=== PATIENT | female | born 1950 | race Hispanic/Latino ===

== ENCOUNTER 2018-08-17 20:38 | Emergency (ER) | payer BC, MEDICARE ==
[2018-08-17] MEDS ORDERED: 0.9% SODIUM CHLORIDE 1000 ML IV BAG IV ONE (21:30)
[2018-08-17 21:40] LABS: BASOPHILS % (AUTO) 0.5 % (0.0-5.0); EOSINOPHILS % (AUTO) 1.8 % (0.0-8.0); HEMATOCRIT 36.9 % (36-48); LYMPHOCYTES % (AUTO) 36.7 % (21.0-51.0); MEAN CORPUSCULAR HEMOGLOBIN 28.8 pg (27.0-33.0); MEAN CORPUSCULAR HGB CONC 33.9 g/dL (32.0-36.0); MEAN CORPUSCULAR VOLUME 85.1 fL (79-99); MONOCYTES % (AUTO) 8.3 % (3.0-13.0); NEUTROPHILS % (AUTO) 52.7 % (40.0-77.0); PLATELET COUNT (AUTO) 262 K/uL (130-400); RED BLOOD CELL COUNT(AUTO) 4.34 MIL/uL (4.00-5.50); RED CELL DISTRIBUTION WIDTH 13.2 % (11.0-15.5); WHITE BLOOD COUNT (AUTO) 5.7 K/uL (4.8-10.8)
[2018-08-17 21:48] LABS: POTASSIUM 3.9 mmol/L (3.5-5.1)
[2018-08-17 21:51] LABS: INR 0.96 (0.85-1.15); PARTIAL THROMBOPLASTIN TIME 29.6 SEC (26.3-35.5); PROTHROMBIN TIME 10.1 SEC (9.6-11.6)
[2018-08-17 21:52] LABS: ALBUMIN 3.3 g/dL (3.5-5.0); BILIRUBIN,TOTAL 0.4 mg/dL (0.2-1.0); TOTAL PROTEIN, SERUM 7.3 g/dL (6.0-8.3)
== END 2018-08-17 23:42 | disposition home or self-care (01) ==
LOC: EDH 20:38
DX: F41.9 Anxiety disorder, unspecified (principal); R55 Syncope and collapse; R42 Dizziness and giddiness
CPT/HCPCS: 36415; 80053; 82550; 84484; 85025; 85610; 85730; 93005; 96360; 96361; 99285; J7030

== ENCOUNTER → 2019-11-29 | Outpatient (CLI) | payer BC, MEDICARE ==
[~2019-11-29] MED LIST: REGADENOSON 0.4 MG/5 ML PF SYG IVP SCH
== END | disposition home or self-care (01) ==
LOC: CANPRECLI → SHCH 08:08
PROVIDERS: ATTEND Internal Medicine Cardiovascular Disease
DX: I25.10 Atherosclerotic heart disease of native coronary artery without angina pectoris (principal)
CPT/HCPCS: 78452; 93017; 96374; A9500 ×2; J2785

== ENCOUNTER → 2023-11-16 | Outpatient (CLI) | payer OTHER ==
[2023-11-16 12:30] LABS: ALBUMIN 3.5 g/dL (3.5-5.0); BILIRUBIN,TOTAL 0.6 mg/dL (0.2-1.0); CREATININE 0.7 mg/dL (0.5-1.0); POTASSIUM 4.1 mmol/L (3.5-5.1); TOTAL PROTEIN, SERUM 7.3 g/dL (6.0-8.3)
== END | disposition home or self-care (01) ==
LOC: LAB 08:13
PROVIDERS: ATTEND Student in an Organized Health Care Education/Training Program
DX: I25.10 Atherosclerotic heart disease of native coronary artery without angina pectoris (principal); Z82.49 Family history of ischemic heart disease and other diseases of the circulatory system
CPT/HCPCS: 36415; 80053

== ENCOUNTER 2023-12-02 14:52 | Observation (INO) | payer OTHER ==
[~2023-12-02] VITALS: Ht 149.9 cm; Wt 52.2 kg
[2023-12-02 15:19] LABS: BASOPHILS # (AUTO) 0.04 K/uL (0.00-0.20); BASOPHILS % (AUTO) 0.7 % (0.0-5.0); EOSINOPHILS % (AUTO) 1.7 % (0.0-8.0); HEMATOCRIT 36.7 % (36-48); IMMATURE GRANULOCYTE ABSOLUTE 0.02 K/uL (0-1); LYMPHOCYTES % (AUTO) 34.1 % (21.0-51.0); MEAN CORPUSCULAR HEMOGLOBIN 29.3 pg (27.0-33.0); MEAN CORPUSCULAR HGB CONC 33.8 g/dL (32.0-36.0); MEAN CORPUSCULAR VOLUME 86.8 fL (79-99); MONOCYTES # (AUTO) 0.5 K/uL (0.1-1.0); MONOCYTES % (AUTO) 8.7 % (3.0-13.0); NEUTROPHILS # (AUTO) 3.1 K/uL (1.8-7.7); NEUTROPHILS % (AUTO) 54.5 % (40.0-77.0); PLATELET COUNT (AUTO) 209 K/uL (130-400); RED BLOOD CELL COUNT(AUTO) 4.23 MIL/uL (4.00-5.50); RED CELL DISTRIBUTION WIDTH 12.1 % (11.0-15.5); WHITE BLOOD COUNT (AUTO) 5.7 K/uL (4.8-10.8)
[2023-12-02 15:32] LABS: CREATININE 0.7 mg/dL (0.5-1.0); POTASSIUM 3.9 mmol/L (3.5-5.1)
[2023-12-02 15:36] LABS: ALBUMIN 3.6 g/dL (3.5-5.0); BILIRUBIN,TOTAL 0.7 mg/dL (0.2-1.0); MAGNESIUM 2.1 mg/dL (1.80-2.40); TOTAL PROTEIN, SERUM 7.3 g/dL (6.0-8.3)
[2023-12-02] MEDS ORDERED: IOHEXOL-350 75 ML VIAL IV ONE (17:06)
[2023-12-02] MEDS ORDERED: ACETAMINOPHEN 500 MG TABLET PO PRN (17:30)
[2023-12-02] MEDS ORDERED: NITROGLYCERIN 0.4 MG SL TAB SL PRN (17:30)
[2023-12-02] MEDS ORDERED: IPRATROPIUM/ALBUTEROL SULFATE 3 ML SOLUTION IH PRN (17:30)
[2023-12-02 17:40] LABS: HEMOGLOBIN A1C 6.3 % (4.0-6.0)
[2023-12-02 17:41] LABS: MAGNESIUM 2.2 mg/dL (1.80-2.40)
[2023-12-02 17:45] LABS: THYROID STIMULATING HORMONE 2.07 uIU/mL (0.36-3.74)
[2023-12-02] MEDS: 0.9%NACL 1000ML 1,000 ML IV SCH (17:49)
[2023-12-02] MEDS: PANTOPRAZOLE 40 MG TAB DR PO SCH (17:50)
[2023-12-02 19:24] VITALS: PULSE 49; RESP 14; O2SAT 99
[2023-12-02 20:30] VITALS: O2SAT 100
[2023-12-02 20:34] VITALS: BP 155/60; PULSE 47; RESP 16
[2023-12-02 23:12] VITALS: BP 115/50; PULSE 47; RESP 16
[2023-12-03 03:24] VITALS: BP 113/55; PULSE 47; RESP 16
[2023-12-03] MEDS ORDERED: ROSU20TA73 PO (03:26)
[2023-12-03 06:09] LABS: BASOPHILS # (AUTO) 0.05 K/uL (0.00-0.20); BASOPHILS % (AUTO) 1.1 % (0.0-5.0); EOSINOPHILS # (AUTO) 0.15 K/uL (0.00-0.70); EOSINOPHILS % (AUTO) 3.3 % (0.0-8.0); HEMATOCRIT 35.4 % (36-48); LYMPHOCYTES # (AUTO) 1.6 K/uL (1.0-4.8); LYMPHOCYTES % (AUTO) 34.6 % (21.0-51.0); MEAN CORPUSCULAR HEMOGLOBIN 29.4 pg (27.0-33.0); MEAN CORPUSCULAR HGB CONC 33.3 g/dL (32.0-36.0); MEAN CORPUSCULAR VOLUME 88.1 fL (79-99); MONOCYTES # (AUTO) 0.4 K/uL (0.1-1.0); MONOCYTES % (AUTO) 9.2 % (3.0-13.0); NEUTROPHILS # (AUTO) 2.4 K/uL (1.8-7.7); NEUTROPHILS % (AUTO) 51.8 % (40.0-77.0); PLATELET COUNT (AUTO) 199 K/uL (130-400); RED BLOOD CELL COUNT(AUTO) 4.02 MIL/uL (4.00-5.50); RED CELL DISTRIBUTION WIDTH 12.2 % (11.0-15.5); WHITE BLOOD COUNT (AUTO) 4.6 K/uL (4.8-10.8)
[2023-12-03 06:29] LABS: BILIRUBIN,TOTAL 0.8 mg/dL (0.2-1.0); CREATININE 0.7 mg/dL (0.5-1.0); TOTAL PROTEIN, SERUM 6.3 g/dL (6.0-8.3)
[2023-12-03 07:00] VITALS: BP 142/56; PULSE 46; RESP 20
[2023-12-03 07:02] VITALS: RESP 14; O2SAT 99
[2023-12-03] MEDS: PANTOPRAZOLE 40 MG TAB DR PO SCH (07:57)
[2023-12-03 08:00] VITALS: O2SAT 100
[2023-12-03 11:00] VITALS: BP 134/55; PULSE 48; RESP 20
[2023-12-03] MEDS ORDERED: PANT40TA54 PO (12:41)
[2023-12-03] MEDS ORDERED: ATORVASTATIN 40 MG TABLET PO SCH (21:00)
== END 2023-12-03 14:30 | disposition home or self-care (01) ==
LOC: EDH 14:52 → EDHIP 17:02 → 2AH 19:12
PROVIDERS: ADMIT Internal Medicine; ATTEND Internal Medicine
DX: K29.70 Gastritis, unspecified, without bleeding (principal); R07.89 Other chest pain; I25.10 Atherosclerotic heart disease of native coronary artery without angina pectoris; E78.5 Hyperlipidemia, unspecified; E78.00 Pure hypercholesterolemia, unspecified; Z87.891 Personal history of nicotine dependence; Z95.1 Presence of aortocoronary bypass graft; Z79.899 Other long term (current) drug therapy
CPT/HCPCS: 96360; 83036; 84443; 82550 ×2; 83735 ×3; 84484 ×3; 80053 ×2; 85025 ×2; 36415 ×2; 71045; 71270; 99291; 93005; 94664; 93306; G0378 ×20; Q9967

== ENCOUNTER 2024-07-17 15:05 | Emergency (ER) | payer OTHER ==
[~2024-07-17] VITALS: Ht 149.9 cm; Wt 52.2 kg
[~2024-07-17 15:05] MED LIST changes: +PANT40TA54 PO; -REGADENOSON 0.4 MG/5 ML PF SYG IVP SCH; +ROSU20TA98 PO
[2024-07-17 15:08] VITALS: TEMP 98.3
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
[2024-07-17] MEDS: cefTRIAXone 1G VIAL IM ONE (17:15)
[2024-07-17] MEDS ORDERED: teTANUS/diphthERIA TOXOID [ADULT] 0.5 ML VIAL IM ONE (17:31)
[2024-07-17] MEDS ORDERED: LIDOCAINE 1%-EPI 1:100,000 20 ML VIAL ONE (17:31)
[2024-07-17] MEDS: DIPH,PERTUSS(ACELL),TET VAC/PF 0.5 ML VIAL IM ONE (17:34)
[2024-07-17 17:46] LABS: BASOPHILS # (AUTO) 0.03 K/uL (0.00-0.20); BASOPHILS % (AUTO) 0.3 % (0.0-5.0); EOSINOPHILS # (AUTO) 0.07 K/uL (0.00-0.70); EOSINOPHILS % (AUTO) 0.7 % (0.0-8.0); HEMATOCRIT 38.4 % (36-48); IMMATURE GRANULOCYTE ABSOLUTE 0.03 K/uL (0-1); LYMPHOCYTES # (AUTO) 1.6 K/uL (1.0-4.8); LYMPHOCYTES % (AUTO) 16.4 % (21.0-51.0); MEAN CORPUSCULAR HEMOGLOBIN 29.3 pg (27.0-33.0); MEAN CORPUSCULAR HGB CONC 33.3 g/dL (32.0-36.0); MEAN CORPUSCULAR VOLUME 87.9 fL (79-99); MONOCYTES # (AUTO) 0.7 K/uL (0.1-1.0); MONOCYTES % (AUTO) 7.3 % (3.0-13.0); NEUTROPHILS # (AUTO) 7.5 K/uL (1.8-7.7); PLATELET COUNT (AUTO) 263 K/uL (130-400); RED BLOOD CELL COUNT(AUTO) 4.37 MIL/uL (4.00-5.50); RED CELL DISTRIBUTION WIDTH 12.3 % (11.0-15.5)
[2024-07-17 17:54] LABS: CREATININE 0.7 mg/dL (0.5-1.0); POTASSIUM 4.2 mmol/L (3.5-5.1)
[2024-07-17] MEDS ORDERED: CLIN-141 PO (18:16)
[2024-07-17 18:32] VITALS: BP 161/76; PULSE 53; RESP 17; O2SAT 96
== END 2024-07-17 18:41 | disposition home or self-care (01) ==
LOC: EDH 15:05
DX: T25.412A Corrosion of unspecified degree of left ankle, initial encounter (principal); S90.512A Abrasion, left ankle, initial encounter; E78.00 Pure hypercholesterolemia, unspecified; F17.200 Nicotine dependence, unspecified, uncomplicated; I25.10 Atherosclerotic heart disease of native coronary artery without angina pectoris; Z77.098 Contact with and (suspected) exposure to other hazardous, chiefly nonmedicinal, chemicals; Z79.899 Other long term (current) drug therapy; Y93.89 Activity, other specified; Y92.89 Other specified places as the place of occurrence of the external cause; Y99.8 Other external cause status
CPT/HCPCS: 99284; 80048; 85025; 36415; 90715; 96372; 90471; J3490; J0696; 90714